=== PATIENT | female | born 1995 | race Caucasian/White ===

== ENCOUNTER 2019-05-24 21:30 | Emergency (ER) | payer OTHER ==
[~2019-05-24] VITALS: Ht 167.6 cm; Wt 57.6 kg
--- NOTE | 2019-05-24 21:47 | NUR ---
PT AAOX4. [place] AND [employer] C/O ETOH. PER FRIEND "FINISHED A WHOLE BOTTLE OF [place]." UPON ASSESSMENT PT STATES SHE DRANK HALF A BOTTLE. PT STATED SHE WAS ADMITTED TO A PSYCH FOR SI A COUPLE MONTHS AGO. PT +SI, -HI, PT UNABLE TO PROVIDE PLAN. PT PLACED ON MONITOR AND PULSE OX, RR EVEN AND UNALBORED, NO ACUTE DISTRESS NOTED, WILL CONTINUE TO MONITOR.
--- NOTE | 2019-05-24 21:49 | NUR ---
PT PLACED IN GOWN, FRIEND AT BEDSIDE.
--- NOTE | 2019-05-24 21:50 | NUR ---
PT ROSENDOS PLACED IN LOCKER
[2019-05-24 22:04] LABS: BASOPHILS % (AUTO) 0.7 % (0.0-2.0); EOSINOPHILS % (AUTO) 0.9 % (0.0-6.0); HEMATOCRIT 41 % (33-45); HEMOGLOBIN 13.4 g/dL (11.5-14.8); LYMPHOCYTES # (AUTO) 3.2 /CMM (0.8-4.8); LYMPHOCYTES % (AUTO) 44.9 % (20.0-44.0); MEAN CORPUSCULAR HGB CONC 33 g/dl (31.0-36.0); MEAN CORPUSCULAR VOLUME 89 fL (82-100); MONOCYTES # (AUTO) 0.3 /CMM (0.1-1.30); MONOCYTES % (AUTO) 4.3 % (2.0-12.0); NEUTROPHILS # (AUTO) 3.5 /CMM (1.8-8.9); NEUTROPHILS % (AUTO) 49.2 % (43.0-81.0); PLATELET COUNT (AUTO) 242 /CMM (150-450); RED BLOOD CELL COUNT(AUTO) 4.54 MIL/uL (4.0-5.2); WHITE BLOOD COUNT (AUTO) 7.1 K/uL (4.3-11.0)
[2019-05-24 22:15] LABS: ALANINE AMINOTRANSFERASE 34 U/L (12-78); ALBUMIN 3.8 g/dL (3.4-5.0); ALCOHOL, BLOOD 142 mg/dL (0-0); ALKALINE PHOSPHATASE 68 U/L (46-116); ASPARTATE AMINOTRANSFERASE 26 U/L (15-37); BILIRUBIN,DIRECT 0.2 mg/dL (0.0-0.2); BILIRUBIN,TOTAL 1.1 mg/dL (0.2-1.0); CALCIUM, SERUM 8.7 mg/dL (8.5-10.1); CARBON DIOXIDE 21 mmol/L (21-32); CHLORIDE 105 mmol/L (98-107); CREATININE 0.9 mg/dL (0.6-1.3); GLUCOSE 116 mg/dL (74-106); POTASSIUM 3.1 mmol/L (3.5-5.1); SODIUM SERUM 143 mmol/L (136-145); TOTAL PROTEIN, SERUM 7.1 g/dL (6.4-8.2); UREA NITROGEN, BLOOD 11 mg/dL (7-18)
[2019-05-24 22:17] LABS: ACETAMINOPHEN < 2 ug/ml (10-30); SALICYLATE < 0.2 mg/dL (2.8-20.0)
--- NOTE | 2019-05-24 22:44 | NUR ---
URINE COLLECTED AND SENT TO LAB
[2019-05-24 22:57] LABS: APPEARANCE,URINE Clear (CLEAR); BILIRUBIN,URINE Negative (NEGATIVE); BLOOD, URINE Trace-lysed Ery/uL (NEGATIVE); COLOR,URINE Yellow (YELLOW); KETONES,URINE Negative (NEGATIVE); LEUKOCYTE ESTERASE ,URINE Negative (NEGATIVE); NITRITE, URINE Negative (NEGATIVE); PROTEIN,URINE Negative (NEGATIVE); UGLUCOSE Negative (NEGATIVE); UROBILINOGEN,URINE 0.2 EU/dL (0.2)
[2019-05-24] MEDS ORDERED: POTASSIUM CHLORIDE 20 MEQ TAB.PRT.SR PO ONE ×2 (22:59→23:00)
--- NOTE | 2019-05-24 23:07 | NUR ---
PT RESTING COMFORTBLY. VSS.
--- NOTE | 2019-05-24 23:09 | NUR ---
PT'S PLAN WAS TO HANG HERSELF.
[2019-05-24 23:13] LABS: BACTERIA,URINE Rare /HPF (None Seen); SQUAMOUS EPITHELIAL CELL,UR Few /HPF (None Seen); WBC,URINE NONE SEEN /HPF (0-3)
--- NOTE | 2019-05-24 23:29 | NUR ---
SPOKE WITH [place] KARI LORD. PT HAVE [facility] AND SHE WILL CONTACT [facility] FOR MORE INFO. WILL CALL BACK
--- NOTE | 2019-05-24 23:31 | NUR ---
[place] ADDRESS: [address] [place] [id number]
--- NOTE | 2019-05-24 23:51 | NUR ---
NONA ORTIZ CALLED BACK, ON THE PHONE WITH WILIAM ALLAN.
--- NOTE | 2019-05-25 00:04 | NUR ---
ALDO (ROOMMATE): [phone] SHAYNA (FRIEND): [phone]
--- NOTE | 2019-05-25 00:27 | NUR ---
SPOKE TO RODERICK FROM [facility] WAS TOLD SOMEONE FROM [facility] WILL CALL BACK WITH EDDIE.
--- NOTE | 2019-05-25 03:06 | NUR ---
PT PLACED ON HOLD.
--- NOTE | 2019-05-25 04:44 | NUR ---
RAQUEL FROM [facility] CALLED WITH UPDATED TX INFO. PATIENT ACCEPTED BY DR. BRADFORD WILL BE TX TO [facility] NUMBER TO CALL FOR REPORT AMBULANCE ETA OF 0630 WAS GIVEN.
[2019-05-25] MEDS ORDERED: ONDANSETRON 4 MG TAB.RAPDIS ONE (06:04)
--- NOTE | 2019-05-25 06:15 | NUR ---
report give to production support analyst
[2019-05-25 06:16] VITALS: BP 110/51
--- NOTE | 2019-05-25 06:16 | NUR ---
report given to EVERARDO Caldwell for nicolas at the [facility]
--- NOTE | 2019-05-25 06:30 | NUR ---
PT WAS PICKED UP VIA [facility] TRANSF[facility] TO [facility] IN STABLE CONDITION.
== END 2019-05-25 06:30 ==
LOC: ER 21:31
DX: R45.851 Suicidal ideations (principal); F10.129 Alcohol abuse with intoxication, unspecified; Y90.6 Blood alcohol level of 120-199 mg/100 ml
CPT/HCPCS: 36415 ×2; 80048; 80076; 80305; 80307 ×2; 80329; 81001; 84703; 85025; 99285; G0480; Q0162; 81000-TC